=== PATIENT | male | born 1960 ===

== ENCOUNTER 2018-10-15 15:34 | Emergency (ER) | payer BC ==
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
[2018-10-15] MEDS ORDERED: DIPHTH/TETANUS/ACEL. PERTUSSIS IM ONLY ONE (16:00)
--- NOTE | 2018-10-15 16:56 | RADIOLOGY IMAGING REPORT ---
FACILITY: [facility] PATIENT NAME: Bernard Lowe : 1960 MR: [id number] V: [id number] EXAM DATE: ORDERING PHYSICIAN: RANCHO BRONSON TECHNOLOGIST: Location: [facility] [place] Patient: Bernard Lowe : 1960 Visit/Account:[id number] Date of Sevice: 10/15/2018 HAND COMPLETE LEFT Indication: Left hand pain after rock fell. Comparison: None Available. Findings: 3 views of the left hand. No fracture or dislocation. No bony lesions or periosteal abnormality. No a ppreciable degenerative changes. Soft tissues show no radiopaque foreign body. IMPRESSION: 1.No acute osseous abnormality of the left hand Report Dictated By: Mynor Pate at 10/15/2018 4:46 PM Report E-Signed By: Mynor Pate at 10/15/2018 4:49 PM WSN:[id number]
--- NOTE | 2018-10-15 16:58 | RADIOLOGY IMAGING REPORT ---
FACILITY: [facility] PATIENT NAME: Bernard Lowe : 1960 MR: [id number] V: [id number] EXAM DATE: ORDERING PHYSICIAN: RANCHO BRONSON TECHNOLOGIST: Location: [facility] [place] Patient: Bernard Lowe : 1960 Visit/Account:[id number] Date of Sevice: 10/15/2018 FOREARM LEFT Indication: Left forearm pain after rock fell. Comparison: None available Findings: Two views of the left forearm show no evidence of fracture, dislocation, or acute osseous abnormality . No periosteal reaction or bony lesions. Soft tissues show no radiopaque foreign body. The lateral aspect of the hand soft tissues does show s ome disruption. IMPRESSION: 1.No acute osseous abnormality left forearm Report Dictated By: Mynor Pate at 10/15/2018 4:49 PM Report E-Signed By: Mynor Pate at 10/15/2018 4:51 PM WSN:[id number]
--- NOTE | 2018-10-15 16:59 | RADIOLOGY IMAGING REPORT ---
FACILITY: [facility] [place] PATIENT NAME: Bernard Lowe : 1960 MR: [id number] V: [id number] EXAM DATE: ORDERING PHYSICIAN: RANCHO BRONSON TECHNOLOGIST: Location: [facility] Patient: Bernard Lowe : 1960 Visit/Account:[id number] Date of Sevice: 10/15/2018 TIBIA FIBULA RIGHT Indication: Right lower leg pain after rock fell. Comparison: None available Findings: Two views right tibia and fibula. There is a mildly comminuted distal right fibular fracture with small bony fragments and mild distrac tion. Nondisplaced fracture the medial malleolus. No other fracture or dislocation. No bony lesions o r periosteal abnormality. Soft tissues show swelling about the ankle. No radiopaque foreign body. IMPRESSION: The distal right fibular fracture and medial malleolus fracture. Report Dictated By: Mynor Pate at 10/15/2018 4:51 PM Report E-Signed By: Mynor Pate at 10/15/2018 4:54 PM WSN:[id number]
--- NOTE | 2018-10-15 17:02 | RADIOLOGY IMAGING REPORT ---
FACILITY: [facility] PATIENT NAME: Bernard Lowe : 1960 MR: [id number] V: [id number] EXAM DATE: ORDERING PHYSICIAN: RANCHO BRONSON TECHNOLOGIST: Location: [facility] Patient: Bernard Lowe : 1960 Visit/Account:[id number] Date of Sevice: 10/15/2018 3 views right ankle INDICATION: Right ankle pain after rock fell. COMPARISON: None Available FINDINGS: 3 views of the right ankle. There is a mildly comminuted fracture of the distal diaphysis of the righ t fibula with small medial bony fragment and mild distraction. No displacement is identified. Syndesm osis appears to be intact. There is a nondisplaced fracture of the medial malleolus. No other fractur e. Tiny linear desiccation posterior to the ankle along the talus. Unsure if this is acute injury or chronic. No dislocation or bony lesion. No appreciable degenerative change. Soft tissues show edema a nd possible small joint effusion. IMPRESSION: 1. Distal right fibular fracture and medial malleolus fracture. Report Dictated By: Mynor Pate at 10/15/2018 4:54 PM Report E-Signed By: Mynor Pate at 10/15/2018 4:56 PM WSN:[id number]
[2018-10-15 18:00] VITALS: BP 118/72
[2018-10-15] MEDS ORDERED: OXYC-865 PO (18:06)
== END 2018-10-15 18:23 | disposition home or self-care (01) ==
LOC: ER 15:48
DX: S51.812A Laceration without foreign body of left forearm, initial encounter (principal); S61.412A Laceration without foreign body of left hand, initial encounter
CPT/HCPCS: 90471; 90715; 99284